=== PATIENT | female | born 1965 | race Caucasian/White ===

== ENCOUNTER 2025-09-17 13:58 | Outpatient (AMB) | payer BC, SELFPAY ==
--- NOTE | 2025-09-17 14:01 | A.OFFPC_ITS ---
Vital Signs 09/17/25 14:03 Height 5 ft 3 in Weight 129 lb 2 oz BMI 22.9 BP 132/84 Blood Pressure Location Lt brachial Position Sitting Respiration 16 Pulse 86 Pulse Source Pulse Oximeter Temp 97.1 F Temp Source Temporal Artery Scan Pulse Oximetry (%) 93 Oxygen Delivery Method Room Air Intake Visit Reasons: Annual-Rey pt Didactic Instructor Required: No Accompanied by: Self / Same As Patient Allergies No Known Allergies Allergy (Verified 09/17/25 14:04) Medication List - Last Reconciled 09/17/25 by Rebecca Le MD azelastine 2 sprays intranasal BID PRN desonide 0.05% appl topical BID PRN dextroamphetamine-amphetamine 15 mg 1 tab PO BID dextroamphetamine-amphetamine 5 mg 1 tab PO DAILY PRN estradiol (Imvexxy Maintenance Pack) 10 mcg vaginal 2XW progesterone micronized 200 mg PO BEDTIME trazodone 50 mg PO BEDTIME PRN tretinoin 0.025% appl topical BEDTIME PRN tretinoin 0.01% topical BEDTIME triamcinolone acetonide 0.1% topical BID PRN Tobacco use date assessed: 09/17/25 Dental Screening Dental Screen Date: 09/17/25 Did you have a dental visit in the last 12 months?: Yes Did you have a dental problem in the last 6 months where you did not have access to dental care?: No Was dental information given to patient?: Patient has dentist HPI HPI Comments History of Present Illness Details The patient is a 60-year-old female [facility] and for an annual wellness visit. Abdominal wall protrusion / Diastasis recti: The patient reports a protrusion in her abdomen, which she notices when lying in certain positions, and believes there may be more than one. She states these occurrences have become more frequent recently, but denies any associated nausea, constipation, or straining. The issue was first noted after an abdominal surgery, following which she was told she had diastasis recti. Uterine Leiomyoma: The patient was diagnosed with uterine fibroids in 2014 and reports they have not shrunk over the past decade. She experiences dyspareunia. Past treatments include ineffective Lupron injections and a uterine artery embolization around [id number]. Her wedding decorator, Dr. Erwin, has been discouraging regarding a hysterectomy and will not prescribe systemic hormones due to concern for fibroid growth. The patient has previously had a surgical consult with Dr. Diamond. Menopausal Syndrome: The patient is receiving treatment for menopausal symptoms from a nurse practitioner at [facility] to [facility]. She uses a compounded cream containing progesterone and estradiol, as her wedding decorator was unwilling to prescribe systemic hormones. She also uses vaginal estrogen prescribed by her PUBLIC OPINION SURVEY TAKER. HTN- bp controlled off meds Health Maintenance: The patient reports her last mammogram was in January of this year. Her last DEXA scan was in 2023. Her vaccinations are up to date for shingles and the new COVID vaccine. She has had a pneumonia shot. OBGYN- Dr. Erwin- will obtain pap smear reports. Social History: - Patient is Family History: - Positive for Alzheimer's disease. Review of Systems - Gastrointestinal: Reports abdominal pr otrusion when lying in certain positions. Denies nausea, constipation, or straining. - Genitourinary: Reports dyspareunia. - Neurological/Psychiatric: Reports inso mnia. Denies depression (PHQ-9 score 0). - Skin: Reports occasional dry skin betw een the ears. Physical Exam - HEENT: External ears normal. Bilateral tympanic membranes are clear. Oropharynx is clear. - Cardiovascular: Regular rate and rhyth m. A soft heart murmur is audible. - Pulmonary: Lungs are clear to ausculta tion bilaterally. - Abdomen: Bowel sounds are present and normal. Abdomen is soft, non-tender to palpation throughout. - Lymphatic: No lymphadenopathy noted on examination. - Extremities: No lower extremity edema. Assessment and Plan 1. Abdominal wall protrusion/Diastasis r ecti - The patient's report of an increasingl y frequent abdominal protrusion warrants further investigation. - An initial soft tissue ultrasound of t he abdomen will be ordered. - Pending these results, an MRI of the a bdomen and pelvis may be pursued for more detailed anatomical assessment. 2. Uterine leiomyomas and Dyspareunia - The patient's large, symptomatic fibro ids, refractory to past treatments and causing dyspareunia, will be further evaluated. - The planned abdominal and pelvic MRI w ill also assess the fibroids' size and location. - Results will guide discussion on furth er management, including a potential referral to Dr. Diamond for surgical consultation regarding a hysterectomy. - The patient will require anxiolysis fo r the MRI(diazepam 5mg- 7.5mg) 3. Health Maintenance - The patient is presenting for an [facility] wellness visit. - Fasting labs, including a lipid panel, CBC, CMP, TSH have been ordered. - She is up to date on her mammogram and DEXA scan. - Her query on APOE testing was addresse d by explaining it is not a routine screening test. 4. Menopausal Syndrome - Patient [facility] using compounded hormone therapy, along with vaginal estrogen from her PUBLIC OPINION SURVEY TAKER. - She will continue her current regimen. 5. Insomnia - Patient is using trazodone effectively for sleep. - She will continue as needed. 6. Dermatologic conditions - Patient has not seen her consumer electronics merchandiser in over a year. - She was advised to contact her dermato logist for refills of her topical medications (Tretinoin, Triamcinolone, Desonide). - Patient will follow up in 3 months Discussion Notes I discussed the plan to evaluate her abdominal protrusion, starting with a soft tissue ultrasound and followed by an MRI of the abdomen and pelvis if necessary. We reviewed that this MRI would also assess her long-standing, symptomatic uterine fibroids. We agreed that based on the imaging results, we will decide on the next steps, which could include a referral for a surgical consultation for a possible hysterectomy. I addressed her questions about genetic testing for Alzheimer's, clarifying that it is not a routine screening test . Patient Instructions - Please complete the fasting bloodwork that was ordered. You will need to fast for 10 hours beforehand (water is okay). You can go to any of the walk-in lab locations on the paper I gave you. - Our office has ordered a soft tissue u ltrasound of your belly. The scheduling department will call you to set up this appointment. [facility] Medical History (Updated 09/17/25 @ 14:35 by Rebecca Le MD) Vitamin D deficiency Routine adult health maintenance Spondylolisthesis Fibroid Primary hypertension Anemia ADHD Surgical History (Updated 09/17/25 @ 14:53 by Rebecca Le MD) Status post embolization of uterine artery History of hernia surgery H/O breast surgery S/P panniculectomy History of colonoscopy (~05/31/16) Family History (Updated 09/17/25 @ 13:08 by Rebecca Le MD) Other Alcoholism COPD (chronic obstructive pulmonary disease) Heart disease Lupus Social History Housing: House Patient Tobacco Use Status: Former Tobacco user Years Smoked: 30 years e-Cigarette/Vaping Use: Former Use service: No Current occupational status: employed 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 1. Little interest or pleasure in doing things: not at all 2. Feeling down, depressed, or hopeless: not at all 3. Trouble falling or staying asleep, or sleeping too much: not at all 4. Feeling tired or having little energy: not at all 5. Poor appetite or overeating: not at all 6. Feeling bad about yourself - or that you are a failure or have let yourself or your family down: not at all 7. Trouble concentrating on things, such as reading the newspaper or watching television: not at all 8. Moving or speaking so slowly that other people could have noticed. Or the opposite - being so fidgety or restless that you have been moving around a lot m ore than usual: not at all 9. Thoughts that you would be better off or of hurting yourself in some way: not at all Total score: 0 Depression Screening Interpretation: Negative Depression Screening Done: Yes 96605 - PHQ-9 Billing: Yes Source: Developed by Drs. Asaf Fox, Jen Fraga, Aj Rosales and colleagues, with an educational ryan from [employer]. Thrive Questionnaire Date Thrive assessed: 09/17/25 I am a: Patient What is your living situation today?: I have a steady place to live Within the past 12 months, did the food you bought not last and you didn't have the money to get more?: Never true Within the past 12 months, did you worry whether your food would run out before you got money to buy more?: Never true Do you have trouble paying for medicines?: No Do you have trouble getting transportation to medical appointments?: No Do you have trouble paying your heating and electricity bill?: No Do you have trouble taking care of your child, family member or friend?: No Do you have trouble with day-to-day activities such as bathing, preparing meals, shopping, managing finances, etc.?: No Are you currently unemployed and looking for a job?: No Are you interested in more education?: No Please select the resources that you would like help with: None Currently or been in a relationship where the following occur: No concerns reported THRIVE Score: 0 AUDIT C Alcohol Use Questionnaire (AUDIT-C) 1. How often do you have a drink containing alcohol?: 2-4 times a month 2. How many drinks containing alcohol do you have on a typical day when you are drinking?: 1 or 2 3. How often do you have six or more drinks on one occasion?: Never Total Score: 2 ANNA-7 AMB Questionnaire ANNA-7 Date ANNA - 7 assessed: 09/17/25 Feeling nervous, anxious, or on edge: 0 = Not at all Not being able to stop or control worryin = Not at all Worrying too much about different things: 0 = Not at all Trouble relaxin = Not at all Being so restless that it is hard to sit still: 0 = Not at all Becoming easily annoyed or irritable: 0 = Not at all Feeling afraid as if something awful might happen: 0 = Not at all Total ANNA-7 score (0-4 normal; 5-9 mild; 10-14 moderate; 15-21 severe): 0 Source: Developed by Drs. Asaf Fox, Jen Fraga, Aj Rosales and colleagues, with an educational ryan from [employer]. Physical exam (Primary Care) Vital Signs: Last Vital Signs Temp 97.1 F 09/17/25 14:03 Pulse 86 09/17/25 14:03 Resp 16 09/17/25 14:03 BP 132/84 09/17/25 14:03 Pulse Ox 93 09/17/25 14:03 Oxygen Delivery Method Room Air 09/17/25 14:03 BMI result Body Mass Index 22.9 Tobacco/Smoking Status: Tobacco use Status Tobacco use date assessed 09/17/25 09/17/25 14:10 Patient Tobacco Use Status Former Tobacco user 09/17/25 14:10 e-Cigarette/Vaping Use Former Use 09/17/25 14:10 PHQ-9: PHQ-9 Score PHQ-9: Total score 0 09/17/25 15:23 Depression Screening Interpretation: Negative Thrive Assessment: Date of Thrive Assessment Date Thrive assessed 09/17/25 09/17/25 14:10 Currently or been in a relationship where the following occur: No concerns reported Coding Level of Care Code Est Pt Prev Care 40-64y(31088) Diagnoses Routine adult health maintenance Z00.00 History of hernia surgery Z98.890; Z87.19 Additional Codes PHQ-9 - 02941 - PHQ-9 Billing: Yes ([id number]) Assessment & Plan Assessment & Plan (1) Routine adult health maintenance: Code(s): Z00.00 - Encounter for general adult medical examination without abnormal findings Category: Medical (2) History of hernia surgery: Code(s): Z98.890 - Other specified postprocedural states; Z87.19 - Personal history of other diseases of the digestive system Category: Surgical Plan Plan - Order a soft tissue ultrasound of the abdomen to evaluate the abdominal protrusion. - Plan for a subsequent MRI of the abdomen and pelvis to further evaluate the abdominal wall and uterine fibroids, pending ultrasound results. - Prescribe Diazepam for use prior to the MRI for anxiolysis. Orders: Orders Complete Blood Count Auto Diff Today D64.9 - Anemia, unspecified, E55.9 - Vitamin D deficiency, unspecified, I10 - Essential (primary) hypertension, Z00.00 - Encounter for general adult medical examination without abnormal findings Comprehensive Met. Panel Today D64.9 - Anemia, unspecified, I10 - Essential (primary) hypertension, Z00.00 - Encounter for general adult medical examination without abnormal findings Ferritin Today D64.9 - Anemia, unspecified, I10 - Essential (primary) hypertension, Z00.00 - Encounter for general adult medical examination without abnormal findings Vitamin B12 Today D64.9 - Anemia, unspecified, I10 - Essential (primary) hypertension, Z00.00 - Encounter for general adult medical examination without abnormal findings Magnesium Today D64.9 - Anemia, unspecified, I10 - Essential (primary) hypertension, Z00.00 - Encounter for general adult medical examination without abnormal findings US abdomen limited Today Z87.19 - Personal history of other diseases of the digestive system, Z98.890 - Other specified postprocedural states TSH reflex Free T4 Today D64.9 - Anemia, unspecified, I10 - Essential (primary) hypertension, Z00.00 - Encounter for general adult medical examination without abnormal findings Lipid Panel Today D64.9 - Anemia, unspecified, I10 - Essential (primary) hypertension, Z00.00 - Encounter for general adult medical examination without abnormal findings IRON PROFILE Today D64.9 - Anemia, unspecified, I10 - Essential (primary) hypertension, Z00.00 - Encounter for general adult medical examination without abnormal findings Vitamin D 25-OH Total Today D64.9 - Anemia, unspecified, E55.9 - Vitamin D deficiency, unspecified, I10 - Essential (primary) hypertension, Z00.00 - Encounter for general adult medical examination without abnormal findings
[2025-09-17 14:03] VITALS: BP 132/84; PULSE 86; RESP 16; TEMP 36.2; O2SAT 93; BMI 22.9
--- OUTSIDE RECORDS SUMMARY | 2025-09-17 20:42 | XMS_ITS | Patient Health Record ---
Author Organization [facility] Address [address] [place] [address] Care Team Providers Care Luggage Repairer Name Role Phone Rebecca Le Primary Care Provider Unavaila ble Allergies No Known Allergies Reason For Referral No Information Medications Medication SIG (Take, Route, Frequency, Duration) Notes Start Date End Date Status metroNIDAZOLE Not-Ta maddie Progesterone 200 MG as directed Orally Not-Taking traZODone HCl Not-Ta maddie Tretinoin 0.05 % 1 application in the evening to face Externally Once a day Not-Taking Adderall 15 MG 1 tablet Orally Twic e a day Active Desonide 0.05 % 1 application Externally Twice a day Not-Taking Dextroamphetamine Sulfate 15 MG 1 tablet in the morning Orally Once a day Not-Taking Fluticasone Furoate-Vilanterol Not-Takin g Problems Problem Type SNOMED Code ICD Code Onset Dates Problem Status W/U Status Risk Notes 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 Problem Plantar fat pad atrophy of right foot (M21.6X1) Active confirmed Plan Of Treatment No Information Insurance Providers Payer Name Payer Address Payer Phone Subscriber Number Group Number Insured Name Patient Relationship to Insured Coverage Start Date Coverage End Date [employer] [facility] [address] [place] [phone] [id number] Susan Mock Self - patient is the insured Medical (General) History Medical History History ICD Code ADHD Anemia Levoscoliosis Spondylolisthesis Uterine Fibroid Surgical History Surgery Date(Month/Year) Release of Dupuytrens contractures Bilateral carpal tunnel release
--- OUTSIDE RECORDS SUMMARY | 2025-09-17 20:42 | XMS_ITS | Data Portability ---
Author Organization [place] - [facility],, ARINA LINDQUIST MD Address [address] [facility] [address] [place] [address] Care Team Providers Care Medical Equipment Repairer Name Role Phone ROBERTA VILLASENOR Primary Care Provider Assessment No assessment recorded. Plan of Treatment Reminders Order Date Submit Date Provider Last Modified By Organization Details Last Modified Time Details Appointments None recorded. Lab cytology report, thin prep, smear or scraping, cervical or vaginal 2024 025 [facility] (Centralized Electronic Ordering - All Locations), Patient Can Go To The Location Of Their Choice, [id number] 11:11:39 hemoglobin , gastrointe stinal, stool 2024 025 [email or web address] 1 In-Office Order, Internal Use Only DO Not Attach Compendium DO Not Attach Compendium, Do Not Delete/merge, [id number] 14:41:18 urinalysis , dipstick 2024 025 [email or web address] 1 In-Office Order, Internal Use Only DO Not Attach Compendium DO Not Attach Compendium, Do Not Delete/merge, [id number] 15:30:19 culture, urine 2024 025 [facility], 2 [facility], [place], [address], 5 18:05:50 wet mount, vaginal 2024 025 [email or web address] 1 In-Office Order, Internal Use Only DO Not Attach Compendium DO Not Attach Compendium, Do Not Delete/merge, [id number] 5 15:32:57 cytology report, thin prep, smear or scraping, cervical or vaginal 2023 024 [facility] (Centralized Electronic Ordering - All Locations), Patient Can Go To The Location Of Their Choice, [id number] 4 18:05:43 hemoglobin , gastrointe stinal, stool 2023 024 [email or web address] 1 In-Office Order, Internal Use Only DO Not Attach Compendium DO Not Attach Compendium, Do Not Delete/merge, [id number] 09:22:37 pap test, thinprep, cervical 2022 023 [email or web address] [facility] (Centralized Electronic Ordering - All Locations), Patient Can Go To The Location Of Their Choice, [id number] 3 08:30:35 wet mount, vaginal 2022 023 [email or web address] 1 In-Office Order, Internal Use Only DO Not Attach Compendium DO Not Attach Compendium, Do Not Delete/merge, [id number] 3 14:27:11 Referral None recorded. Procedures None recorded. Surgeries None recorded. Imaging MAMMO, screening, digital, bilateral - Breast Aspiration and/or Biopsy if needed 2024 025 [email or web address], [address], [address], [place], [address], 5 09:56:42 US, pelvis, transabdom inal + transvagin al - has known fibroid uterus, patient notes pelvic pain, please asses fibroid for possible change in size 2024 025 [facility], [address], [address], [place], [address], 5 17:19:35 MAMMO, screening, digital, bilateral - Breast Aspiration and/or Biopsy if needed 2023 024 [facility] Orders, [address], [address], [place], [address], 5 15:04:45 MAMMO, screening, digital, bilateral - Breast Aspiration and/or Biopsy if needed 2022 023 [facility] Orders, [address], [address], [place], [address], 4 16:58:29 Medication Orders Imvexxy Maintenanc e Pack 10 mcg vaginal insert 2024 025 [facility], [address] [place] [address], [address], 5 14:30:17 triamcinol one acetonide 0.1 % topical ointment 2024 025 [facility], [address] [place] [address], [address], 5 14:30:17 progestero ne micronized 200 mg capsule 2024 025 [facility], [address] [place] [address], [address], 5 14:30:17 triamcinol one acetonide 0.1 % topical ointment 2024 025 [facility]0859, [address] [place] [address], [address], 5 15:30:21 fluconazol e 150 mg tablet 2024 025 [facility]0859, [address] [place] [address], [address], 5 14:24:03 progestero ne micronized 200 mg capsule 2023 024 [facility]acy #0859, [address] [place] [address], [address], 4 09:22:41 Imvexxy Maintenanc e Pack 10 mcg vaginal insert 2023 024 [email or web address] 1 [facility], [address] [place], [address], 4 09:22:47 Imvexxy Maintenanc e Pack 10 mcg vaginal insert 2022 023 [email or web address] 1 [facility], [address] [place], [address], 3 14:23:36 progestero ne micronized 200 mg capsule 2022 023 JOAQUIM [facility], [address] [place] [address], [address], 3 14:20:47 fluconazol e 150 mg tablet 2022 023 [email or web address] [facility], [address] [place] [address], [address], 5 14:24:00 Patient TargetsNo targets recorded. Patient Instructions Encounter Date Encounter Id Patient Instructions Last Modified By Organization Details Last Modified Time 04/29/2023 [id number] atrophic vaginitis: care instructions Not available 04/29/2023 14:28:47 vaginal yeast infection: care instructions Not available 04/29/2023 14:27:10 She is here because in the past week she has developed a new onset, painful intercourse, which she did not have previously. She has been using the Imvexxy with good results, nad the depo lupron shrunk the uterus and it is not causing dyspareunia anymore. Her last depo lupron was 01/24, uterus was 8 weeks size at that time, it had been 12 weeks size previously. On exam: ther are two vertical skin splits, on on each side of the urethra, similar to pressure skin splits, they are 3 mm tall and shallow, superficial, and tender to the touch Wet jeny show mild monilia, she requests rx diflucan. She believes she may have had a pressure injury during intercourse to explain the skin tears. She will keep an eye on it and keep them clean, call if they do not heal. Continue Imvexxy. She also had a number of questions about her fibroid uterus, all answered. Not available 04/29/2023 14:28:35 07/01/2023 [id number] learning about healthy weight Not available 07/01/2023 14:20:35 uterine fibroids : care instructions Not available 07/01/2023 14:21:21 She is here for annual, doing well. She used depo lupron to shrink the fibroid uterus with good results. She is using the Imvexxy, and the vaginal dyspareunia has resolved. Overall she is much improved. She is having some night sweats and sleep disturbances. ___ Note from 2021: She is here for annual exam, no menses since 2018. She has chronic pain from her enlarged uterus, she had a uterine artery embolization in 2015 however this did not appear to resolve the symptomatic fibroids. A recent pelvic MRI was done to assess the enlarged uterus and the largest fibroid is 6 cm at the fundus and has a 5.5 cm bridge to the fundus, so myomectomy is likely to not be a good option. She is unable to be sexually active due to the pain. Prior to the depo lupron her uterus was 10 to 12 weeks size and tender, now it is 8 weeks size and nontender. she does not have the back pain or the urinary frequency or the dyspareunia anymore. the depo lupron accomplished what it was intended to do. We discussed using Remifemin Black Cohash for her night sweats. She is taking 200 mg prometrium q HS to help her to sleep. She appears to be doing well. Renew Imvexxy and Prometrium. Monthly self breast exam was taught, and stressed, and is advised to call if she discovers any new mass in the breast. Not available 07/01/2023 14:21:05 07/02/2024 [id number] learning about healthy weight Not available 07/02/2024 09:22:37 She is here for annual, doing well, using the prometrium to help sleep, and the Imvexxy for the dryness and dyspareunia. Note from 2022: She is here for annual, doing well. She used depo lupron to shrink the fibroid uterus with good results. She is using the Imvexxy, and the vaginal dyspareunia has resolved. Overall she is much improved. She is having some night sweats and sleep disturbances. She appears to be doing well. Monthly self breast exam was taught, and stressed, and is advised to call if she discovers any new mass in the breast. Not available 07/02/2024 09:23:04 04/26/2025 [id number] urinary tract infection in women information Not available 04/26/2025 15:30:19 vaginal yeast infection: care instructions Not available 04/26/2025 15:30:19 She is here for a one week history of vaginal pruritus and burning. She has been scratching herself at night. She has symptomatic monilia, rx diflucan now and in a week. Also she has started to develop lichen sclerosis, rx Aristocort BID as needed. Also she has dysuria, urine dip negative, check culture. Not available 04/26/2025 15:34:02 08/09/2025 [id number] learning about healthy weight Not available 08/09/2025 14:30:12 She is here for annual, doing well on prometrium and imvexxy. Also using Aristocort with good results in her lichen sclerosis. She notes some recent pelvic pressure and dyspareunia, wonders if her fibroids have enlarged, will check pelvic sonogram. Sono a year ago showed 10 week size. Note from 2023: She is here for annual, doing well, using the prometrium to help sleep, and the Imvexxy for the dryness and dyspareunia. Note from 2022: She is here for annual, doing well. She used depo lupron to shrink the fibroid uterus with good results. She is using the Imvexxy, and the vaginal dyspareunia has resolved. Overall she is much improved. She is having some night sweats and sleep disturbances. __ She appears to be doing well. Check sonogram of pelvis to see if fibroids have enlarged to account for new pelvic symptoms. Monthly self breast exam was taught, and stressed, and is advised to call if she discovers any new mass in the breast. Not available 08/09/2025 14:58:21 Reason for Referral None Reported. Results Created Date Observation Date Name Description Value Unit Range Abnormal Flag Note LastModifiedBy Organization Detail LastModifiedTime 04/29/2004/29/2023 wet mount , vagin al Clue Cells negati ve Not Available In-Office Order Internal Use Only DO Not Attach Compendium DO Not Attach Compendium, Do Not Delete/merge, 04/29/2023 14:26:44 04/29/20 23 04/29/2023 wet mount , vagin al Trichomonas negati ve Not Available In-Office Order Internal Use Only DO Not Attach Compendium DO Not Attach Compendium, Do Not Delete/merge, 04/29/2023 14:26:44 04/29/20 23 04/29/2023 wet mount , vagin al Hyphae positi ve Not Available In-Office Order Internal Use Only DO Not Attach Compendium DO Not Attach Compendium, Do Not Delete/merge, 04/29/2023 14:26:44 04/29/20 23 04/29/2023 wet mount , vagin al atrophic epithelium positi ve Not Available In-Office Order Internal Use Only DO Not Attach Compendium DO Not Attach Compendium, Do Not Delete/merge, [id number] 04/29/2023 14:26:44 07/01/20 23 07/01/2023 [facility] CYTOL OGY results Amanda south Name: TIFFANIE MOCK Amanda south : 965 (Age: 58) Lab Acces leslie #: [id number] Colle ction Date: 2022 Acces leslie Date: 2022 Sign Out Date: 023 Tissandrey imani Ti e: 1: THINP REP 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 Satis facto ry for evalu ation . Endoc ervic al/tr ansfo rmati on zone prese nt. Clini didi Histo ry: Date of Last Menst rual Perio d: not avail able Menst rual Histo ry: not avail able Contr acept therese Histo ry: not avail able Ancil jina Testi ng: Case image d by the ThinP rep Imagi ng Syste m with jammie bernard or amanda hoang Perfo rmed at [facility] ate Refer ence [facility] Cytol o[facility], [address] [place] Clini didi Histo ry (othe r): Z01.4 19 Phone #: [phone], On-Ca ll Patho logis t: [id number] Not Available [facility] (Centralized Electronic Ordering - All Locations) Patient Can Go To The Location Of Their Choice, [id number] 07/08/2023 11:39:45 07/02/20 24 07/07/2024 IGP, RFX APTIM A HPV ASCU diagnosis: Commen t NEGAT THERESE FOR INTRA EPITH ELIAL LESIO N OR MALIG KENNY . Not Available [facility] ([facility]) [address] [facility], [place], [address], 07/07/2024 18:05:43 07/02/2007/07/2024 IGP, RFX APTIM A HPV ASCU specimen adequacy: Commen t Satis facto ry for evalu ation . Endoc ervic al and/o r squam ous metap lasti c cells (endo cervi didi compo nent) are prese nt. Not Available [facility] ([facility]) [address] [facility], [place], [address], 07/07/2024 18:05:43 07/02/20 24 07/07/2024 IGP, RFX APTIM A HPV ASCU clinician provided ICD10: Blu casanova Z01.4 19 Not Available [facility] ([facility]) [address] [place], [address], 07/07/2024 18:05:43 07/02/20 24 07/07/2024 IGP, RFX APTIM A HPV ASCU performed by: Blu Matias , Aida casanova (ASCP ) Not Available [facility] ([facility]) [address] [place], [address], 07/07/2024 18:05:43 07/02/20 24 07/07/2024 IGP, RFX APTIM A HPV ASCU . . Not Available [facility] ([facility]) [address] [place], [address], 07/07/2024 18:05:43 07/02/20 24 07/07/2024 IGP, RFX APTIM A HPV ASCU note: Blu casanova The Pap smear is a scree go test ирина peng to aid in the detec tion of hayley ligna nt and malig nant condi tions of the uteri ne cervi x. It is not a diagn ostic proce dure and shoul d not be used as the sole means of detec ting cervi didi cance r. Both false -posi tive and false -nega tive repor ts do occur . Not Available [facility] ([facility]) [address] [place], [address], 07/07/2024 18:05:43 07/02/20 24 07/07/2024 IGP, RFX APTIM A HPV ASCU test methodology: Blu casanova This liqui d based ThinP rep(R ) pap test was scree danish with the use of an image guide casey systimani m. Not Available [facility] ([facility]) [address] [facility] [place], [address], 07/07/2024 18:05:43 07/02/20 24 07/07/2024 IGP, RFX APTIM A HPV ASCU . Commen t The HPV DNA refle x crite pastora were not met with this speci men resul t there fore, no HPV testi ng was perfo rmed. Not Available [facility] ([facility]) [address] [facility], [place], [address], 07/07/2024 18:05:43 07/02/20 24 07/02/2024 hemog lobin , gastr ointe wicho l, stool Occult Blood negati ve Not Available In-Office Order Internal Use Only DO Not Attach Compendium DO Not Attach Compendium, Do Not Delete/merge, [id number] 07/02/2024 08:10:23 04/26/20 25 04/27/2025 URINE CULTU RE, LUCYI NE urine culture, routine Final report Not Available [facility] ([facility]) [address] [facility], [place], [address], 04/27/2025 18:05:50 04/26/20 25 04/27/2025 URINE CULTU REDARA NE result 1 No growth Not Available [facility] ([facility]) [address] [facility], [place], [address], 04/27/2025 18:05:50 04/26/20 25 04/26/2025 wet mount , vagin al Clue Cells negati ve Not Available In-Office Order Internal Use Only DO Not Attach Compendium DO Not Attach Compendium, Do Not Delete/merge, [id number] 04/26/2025 15:28:39 04/26/20 25 04/26/2025 wet mount , vagin al Trichomonas negati ve Not Available In-Office Order Internal Use Only DO Not Attach Compendium DO Not Attach Compendium, Do Not Delete/merge, [id number] 04/26/2025 15:28:39 04/26/20 25 04/26/2025 wet mount , vagin al Hyphae positi ve Not Available In-Office Order Internal Use Only DO Not Attach Compendium DO Not Attach Compendium, Do Not Delete/merge, 04/26/2025 15:28:39 04/26/2004/26/2025 wet mount , vagin al atrophic epithelium positi ve Not Available In-Office Order Internal Use Only DO Not Attach Compendium DO Not Attach Compendium, Do Not Delete/merge, 04/26/2025 15:28:39 04/26/20 25 04/26/2025 urina lysis , dipst ick GLU Negati ve Not Available In-Office Order Internal Use Only DO Not Attach Compendium DO Not Attach Compendium, Do Not Delete/merge, 04/26/2025 15:14:16 04/26/2004/26/2025 urina lysis , dipst ick MANOLO Negati ve Not Available In-Office Order Internal Use Only DO Not Attach Compendium DO Not Attach Compendium, Do Not Delete/merge, 04/26/2025 15:14:16 04/26/2004/26/2025 urina lysis , dipst ick KET Negati ve Not Available In-Office Order Internal Use Only DO Not Attach Compendium DO Not Attach Compendium, Do Not Delete/merge, 04/26/2025 15:14:16 04/26/2004/26/2025 urina lysis , dipst ick SG 1.020 Not Available In-Office Order Internal Use Only DO Not Attach Compendium DO Not Attach Compendium, Do Not Delete/merge, 04/26/2025 15:14:16 04/26/2004/26/2025 urina lysis , dipst ick BLO Hemoly zed : Trace Not Available In-Office Order Internal Use Only DO Not Attach Compendium DO Not Attach Compendium, Do Not Delete/merge, 04/26/2025 15:14:16 04/26/2004/26/2025 urina lysis , dipst ick pH 6.5 Not Available In-Office Order Internal Use Only DO Not Attach Compendium DO Not Attach Compendium, Do Not Delete/merge, 04/26/2025 15:14:16 04/26/20 25 04/26/2025 urina lysis , dipst ick PRO Negati ve Not Available In-Office Order Internal Use Only DO Not Attach Compendium DO Not Attach Compendium, Do Not Delete/merge, [id number] 04/26/2025 15:14:16 04/26/20 25 04/26/2025 urina lysis , dipst ick URO 0.2 E.U. / dl Not Available In-Office Order Internal Use Only DO Not Attach Compendium DO Not Attach Compendium, Do Not Delete/merge, [id number] 04/26/2025 15:14:16 04/26/20 25 04/26/2025 urina lysis , dipst ick NIT negati ve Not Available In-Office Order Internal Use Only DO Not Attach Compendium DO Not Attach Compendium, Do Not Delete/merge, 04/26/2025 15:14:16 04/26/20 25 04/26/2025 urina lysis , dipst ick SARI Negati ve Not Available In-Office Order Internal Use Only DO Not Attach Compendium DO Not Attach Compendium, Do Not Delete/merge, [id number] 04/26/2025 15:14:16 08/09/2008/12/2025 IGP, RFX APTIM A HPV ASCU diagnosis: Commen t NEGAT THERESE FOR INTRA EPITH ELIAL LESIO N OR TAM COX . Not Available [facility] ([facility]) [address] [facility], [place], [address], 08/12/2025 11:11:39 08/09/20 25 08/12/2025 IGP, RFX APTIM A HPV ASCU specimen adequacy: Commen t Satis facto ry for evalu ation . Endoc ervic al and/o r squam ous metap lasti c cells (endo cervi didi compo nent) are prese nt. Not Available [facility] ([facility]) [address] [facility], [place], [address], 08/12/2025 11:11:39 08/09/20 25 08/12/2025 IGP, RFX APTIM A HPV ASCU clinician provided ICD10: Blu casanova Z01.4 19 Not Available [facility] ([facility]) [address] [place], [address], 08/12/2025 11:11:39 08/09/2008/12/2025 IGP, RFX APTIM A HPV ASCU performed by: Blu Matias , Cytol ogist (ASCP ) Not Available [facility] ([facility]) [address] [place], [address], 08/12/2025 11:11:39 08/09/2008/12/2025 IGP, RFX APTIM A HPV ASCU . . Not Available [facility] ([facility]) [address] [place], [address], 08/12/2025 11:11:39 08/09/2008/12/2025 IGP, RFX APTIM A HPV ASCU note: Blu casanova The Pap smear is a scree go test desig danish to aid in the detec tion of hayley ligna nt and malig nant condi tions of the uteri ne cervi x. It is not a diagn ostic proce dure and shoul d not be used as the sole means of detec ting cervi didi cance r. Both false -posi tive and false -nega tive repor ts do occur . Not Available [facility] ([facility]) [address] [facility], [place], [address], 08/12/2025 11:11:39 08/09/2008/12/2025 IGP, RFX APTIM A HPV ASCU test methodology: Blu casanova This liqui d based ThinP rep(R ) pap test was scree danish with the use of an image guide casey [place] Not Available [facility] ([facility]) [address] [place], [address], 08/12/2025 11:11:39 08/09/20 25 08/12/2025 IGP, RFX APTIM A HPV ASCU . Commen t The HPV DNA refle x crite pastora were not met with this speci men resul t there fore, no HPV testi ng was perfo rmed. Not Available [facility] ([facility]) [address] [facility], [place], [address], 08/12/2025 11:11:39 08/09/20 25 08/09/2025 hemog lobin , gastr ointe wicho l, stool Occult Blood negati ve Not Available In-Office Order Internal Use Only DO Not Attach Compendium DO Not Attach Compendium, Do Not Delete/merge, [id number] 08/09/2025 14:41:10 01/06/20 24 01/06/2024 US, pelvi s, trans abdom inal + trans vagin al No observ ation record ed. [email or web address] [address], [address], 01/13/2024 10:24:22 01/24/20 24 01/24/2024 MAMMO , scree go, digit al, bilat eral No observ ation record ed. [facility] [address], [place], [address], 01/27/2024 08:34:25 01/29/20 25 01/27/2025 MAMMO , scree go, digit al, bilat eral No observ ation record ed. [facility] [address] [facility] [address], [place], [address], 01/28/2025 15:27:08 08/20/20 25 08/20/2025 US, pelvi s, trans abdom inal + trans vagin al No observ ation record ed. [email or web address] [address], [address], 09/06/2025 08:32:38 Result Notes None recorded. Problems Name Problem SNOMED Code Status Onset Date Resolution Date Notes Provider Name and Address Organization Details Recorded Time Menopausal syndrome 628067180 Active 2018 Arina Lindquist MD [address], [place], [address], [place] - [facility], 9 14:44:34 Reduced libido 1105704 Active 2018 Arina Lindquist MD [address], [place], [address], [place] [facility], 9 14:44:42 Uterine leiomyoma 82870145 Active 2019 12 weeks size even after UAE Arina Lindquist MD [address], [place], [address], [place] [facility], 0 15:11:16 Backache 135741755 Active 2019 Arina Lindquist MD [address], [place], [address], [place] [facility], 0 14:01:52 Dyspareunia 68508162 Active 2019 Arina Lindquist MD [address], [place], [address], [place] - [facility], 0 14:01:59 Increased frequency of urination 731822738 Active 2019 Arina Lindquist MD [address], [place], [address], [place] - [facility], 0 14:02:07 Atrophic vaginitis 52410187 Active 2021 Arina Lindquist MD [address], [place], [address], [place] - [facility], 2 08:55:01 Intermittent claudication 83188297 Active 2021 MD Rohit Matthews,[address], [place], [address], [place] - [facility], 09:43:22 Problem Notes None recorded. Procedures Surgical History Date Name Laterality Status Provider Name and Address Organization Details Recorded Time 01/28/20 25 Most Recent Mammogram completed Clarisa Arriola in [facility], 04/26/2025 15:13:46 11/21/19 23 medial rectus resection completed Steph Arriola in [facility], 01/07/2023 09:08:55 07/14/20 20 hand tendon release completed Steph Arriola in [facility], 08/16/2020 13:06:31 04/09/20 17 Carpal tunnel surgery completed Clarisa Arriola in [facility], 04/06/2019 13:28:35 04/09/20 16 embolization procedure completed Arina Lindquist MD [address] [facility],[address], [place], [address], [place] - [facility], 05/05/2020 14:27:42 10/10/20 10 Nipple/areola reconstruction completed Clarisa Arriola in [facility], 04/06/2019 13:30:17 11/04/19 10 abdominoplasty completed Arina Lindquist MD [address], [place], [address], [facility] - [facility], 06/01/2022 09:00:35 01/16/20 06 Hernia repair w/mesh completed Clarisa Arriola in [facility], 04/06/2019 13:29:28 Imaging Results None recorded. Procedure Notes None recorded. Medical Equipment None Reported. Allergies No known drug allergies Medications Name Sig Start Date Stop Date Status Note LastModified by Organization Details LastModified Time Prescript ion - Clarifica tion active Lupron Not Available Not Available Not Available Prescript ion - Prior Authoriza tion Request active [facility] L[facility] Not Available Not Available Not Available celecoxib 200 mg capsule TAKE 1 CAPSULE BY MOUTH TWICE DAILY. START 1 DAY PRE-OP 12/07 completed Not Available Not Available Not Available tretinoin 0.1 % topical cream APPLY TO AFFECTED AREA AT BEDTIME active Not Available Not Available No t Available desonide 0.05 % topical cream APPLY TWICE A DAY FOR 5 DAYS THEN DISCONTI NUE 04/26 completed Not Available Not Available Not Available terconazo le 0.4 % vaginal cream INSERT 1 APPLICAT ORFUL VAGINALL Y EVERY DAY FOR 7 DAYS 07/01 completed Not Available Not Available Not Available acetamino phen 325 mg tablet TAKE 2 TABLETS BY MOUTH EVERY 6 HOURS X 14 DAYS NEEDED FOR PAIN 04/26 completed Not Available Not Available Not Available Estring 2 mg (7.5 mcg/24 hour) vaginal ring Insert 1 vaginal ring every 3 months by vaginal route. 04/03 completed Not Available Not Available Not Available tretinoin 0.01 % topical gel APPLY PEA SIZED AMOUNT TOPICALL Y TO FACE EVERY NIGHT AT BEDTIME active Not Available Not Available No t Available trazodone 50 mg tablet TAKE 1 & 1/2 TABLETS BY MOUTH DAILY AT BEDTIME NEEDED FOR INSOMNIA active Not Available Not Available No t Available azithromy lilia 250 mg tablet TAKE 2 TABLETS BY MOUTH TODAY, THEN TAKE 1 TABLET DAILY FOR 4 DAYS DIRECTED 07/02 completed Not Available Not Available Not Available alprazola m 1 mg tablet TAKE 1 TABLET BY MOUTH 1 HOUR PRIOR TO SURGERY 12/07 completed Not Available Not Available Not Available fluconazo le 150 mg tablet TAKE 1 TABLET EVERY WEEK BY ORAL ROUTE FOR 14 DAYS. 08/09 completed Not Available Not Available Not Available valacyclo vir 1 gram tablet 05/05 completed Not Available Not Available Not Available cephalexi n 250 mg capsule TAKE 1 CAPSULE BY MOUTH EVERY 6 HOURS 06/01 completed Not Available Not Available Not Available hydrocodo ne 5 mg-acetam inophen 325 mg tablet TAKE 1 TABLET BY MOUTH EVERY 6 HOURS NEEDED FOR PAIN 12/07 completed Not Available Not Available Not Available tretinoin 0.025 % topical cream APPLY TOPICALL Y DAILY AT BEDTIME NEEDED FOR RHYTIDES active Not Available Not Available No t Available fluocinol one 0.01 % topical cream 12/10 completed Not Available Not Available Not Available meloxicam 15 mg tablet 06/01 completed Not Available Not Available Not Available hydroquin one 4 % topical cream APPLY A THIN FILM TO AFFECTED AREA DAILY 07/02 completed Not Available Not Available Not Available metronida zole 0.75 % (37.5 mg/5 gram) vaginal gel INSERT 1 APPLICAT ORFUL VAGINALL Y EVERY DAY FOR 5 DAYS 04/03 completed Not Available Not Available Not Available dextroamp hetamine- amphetami ne 10 mg tablet TAKE 1 TABLET BY MOUTH TWICE DAILY FOR ADHD active Not Available Not Available No t Available clobetaso l 0.05 % topical cream APPLY TOPICALL Y EVERY MORNING AND EVERY EVENING TO RASH RIGHT UPPER ARM FOR 2 WEEKS 08/06 completed Not Available Not Available Not Available amlodipin e 2.5 mg tablet TAKE 1 TABLET BY MOUTH EVERY DAY active Not Available Not Available No t Available doxycycli ne monohydra te 100 mg tablet TAKE 1 TABLET BY MOUTH TWICE DAILY FOR 7 DAYS 12/07 completed Not Available Not Available Not Available amoxicill in 500 mg tablet TAKE 1 TABLET BY MOUTH THREE TIMES DAILY 05/30 completed Not Available Not Available Not Available lidocaine -prilocai ne 2.5 %-2.5 % topical cream 06/13 completed Not Available Not Available Not Available dextroamp hetamine- amphetami ne 30 mg tablet TAKE 1/2 TABLET BY MOUTH TWICE DAILY active Not Available Not Available No t Available oxycodone -acetamin ophen 5 mg-325 mg tablet TAKE 1 TABLET BY MOUTH EVERY 8 HOURS NEEDED FOR PAIN 04/03 completed Not Available Not Available Not Available desonide 0.05 % topical ointment 08/16 completed Not Available Not Available Not Available benzonata te 100 mg capsule TAKE 1 CAPSULE BY MOUTH THREE TIMES A DAY NEEDED FOR COUGH 07/02 completed Not Available Not Available Not Available hydrocort isone 1 % topical cream MIX W/ ECONAZOL E & CICAPLAS T EQUALLY & APPLY MIXTURE TO CORNERS OF MOUTH 3 TIMES A DAY FOR 7 DAYS . 07/02 completed Not Available Not Available Not Available econazole nitrate 1 % topical cream PATIENT TO MIX WITH EQUAL AMOUNT OF HYDROCOR TISONE,C ICAPLAST B5 AND APPLY 3 TIMES A DAY FOR 7 DAYS . 07/02 completed Not Available Not Available Not Available erythromy lilia 5 mg/gram (0.5 %) eye ointment APPLY A THIN FILM TO EYELID WOUNDS THREE TIMES DAILY 08/06 completed Not Available Not Available Not Available tacrolimu s 0.1 % topical ointment APPLY TO SKIN TWICE A DAY FOR SIX WEEKS active Not Available Not Available No t Available triamcino lone acetonide 0.1 % topical ointment APPLY TWICE A DAY NEEDED FOR 30 DAYS active Not Available Not Available No t Available lidocaine 5 % topical patch 05/05 completed Not Available Not Available Not Available progester one micronize d 200 mg capsule TAKE 1 CAPSULE BY MOUTH AT BEDTIME active Not Available Not Available No t Available nystatin- triamcino lone 100,000 unit/g-0. 1 % topical cream APPLY TOPICALL Y TO AFFECTED SKIN 3 TIMES A DAY FOR 14 DAYS 07/01 completed Not Available Not Available Not Available dextroamp hetamine- amphetami ne 15 mg tablet TAKE 1 TABLET BY MOUTH TWICE DAILY active Not Available Not Available No t Available Lupron Depot 3.75 mg intramusc ular syringe kit Inject 1 kit every 4 weeks by intramus cular route. 04/29 completed give an injectio n every 28 days Not Available Not Available Not Available monteluka st 10 mg tablet TAKE 1 TABLET BY MOUTH EVERY DAY 04/26 completed Not Available Not Available Not Available clindamyc in 2 % vaginal cream INSERT 1 APPLICAT ORFUL VAGINALL Y EVERY DAY AT BEDTIME FOR 7 DAYS active Not Available Not Available No t Available codeine 10 mg-guaife nesin 100 mg/5 mL oral liquid TAKE 5 ML BY MOUTH EVERY 6 HOURS NEEDED FOR COUGH. MAY CAUSE DROWSINE SS. 07/02 completed Not Available Not Available Not Available mupirocin 2 % topical ointment APPLY TOPICALL Y TO THE AFFECTED AREA TWICE DAILY active Not Available Not Available No t Available nystatin 100,000 unit/gram topical powder APPLY TO AFFECTED AREA 3 TIMES A DAY 07/02 completed Not Available Not Available Not Available azelastin e 137 mcg (0.1 %) nasal spray USE 2 SPRAYS INTO EACH NOSTRIL TWICE A DAY active Not Available Not Available No t Available diazepam 10 mg tablet TAKE 1/2 TAB 2 HRS BEFORE PROCEDUR E, THEN 1/2 TAB IF STILL ANXIOUS NEEDED. DO NOT DRIVE ON MED 07/01 completed Not Available Not Available Not Available ibuprofen 600 mg tablet TAKE 1 TABLET BY MOUTH EVERY 6 HOURS X 14 DAYS :ALTERNA TE EVERY 6 HRS WITH TYLENOL 04/26 completed Not Available Not Available Not Available dextroamp hetamine- amphetami ne ER 30 mg 24hr capsule,e xtend release TAKE 1 CAPSULE BY MOUTH EVERY DAY IN THE MORNING active Not Available Not Available No t Available ketoconaz ole 2 % topical cream 05/05 completed Not Available Not Available Not Available fluticaso ne propionat e 50 mcg/actua tion nasal spray,gustavo pension SHAKE LIQUID AND USE 1 SPRAY IN EACH NOSTRIL TWICE DAILY FOR 14 DAYS active Not Available Not Available No t Available dextroamp hetamine- amphetami ne 5 mg tablet TAKE 1 TABLET BY MOUTH EVERY AFTERNOO N active Not Available Not Available No t Available oxycodone 5 mg tablet TAKE 1 TO 2 TABLETS EVERY 4 HOURS NEEDED FOR PAIN 06/01 completed Not Available Not Available Not Available cyclobenz aprine 5 mg tablet 05/05 completed Not Available Not Available Not Available melatonin 04/03 completed Not Available Not Available Not Available Fish Oil 06/01 completed Not Available Not Available Not Available Triple Paste AF 2 % topical ointment PARK AA WITH RASH BID. 08/16 completed Not Available Not Available Not Available estradiol 10 mcg vaginal tablet INSERT 1 RING VAGINALL Y EVERY 3 MONTHS active Not Available Not Available No t Available Multi For Her active Not Available Not Available Not Available Vytone 1.9 %-1 % topical cream packet Apply TO affected AREA twice daily FOR 2-4 WEEKS 07/01 completed Not Available Not Available Not Available Readi-Cat 2 2 % (w/v) oral suspensio n DRINK FIRST BOTTLE AT LEAST 6 HOURS PRIOR TO TEST AND SECOND BOTTLE 90 MINS PRIOR TO TEST active Not Available Not Available No t Available Shingrix (PF) 50 mcg/0.5 mL intramusc ular suspensio n, kit active Not Available Not Available Not Available Fluarix Quad [id number] (PF) 60 mcg (15 mcg x 4)/0.5 mL IM syringe inject 0.5 millilit er intramus cularly active Not Available Not Available No t Available Imvexxy Maintenan ce Pack [address] INSERT VAGINALL Y TWICE WEEKLY active Not Available Not Available No t Available Flucelvax Quad (PF) 60 mcg (15 mcg x 4)/0.5 mL IM syringe inject 0.5 millilit ers intramus cularly active Not Available Not Available No t Available Flucelvax Quad (PF) 60 mcg (15 mcg x 4)/0.5 mL IM syringe ADM 0.5ML IM UTD active Not Available Not Available No t Available Vitals Date Recorded Body height Body mass index (BMI) Body weight Heart rate Systolic And Diastolic Provider Name and Address Organization Details Last Updated DateTime 04/26/2025 158.75 cm 22.3 kg/m2 12345.45 g 96 /min 118/83 mm[Hg] Clarisa Arriola in [facility], 04/26/2025 15:10:57 Date Recorded Body height Body mass index (BMI) Body weight Systolic And Diastolic Provider Name and Address Organization Details Last Updated DateTime 04/29/2023 158.75 cm 22 kg/m2 40198.27 g 138/78 mm[Hg] Steph Arriola in [facility], 04/29/2023 14:03:57 Date Recorded Body height Body mass index (BMI) Body weight Heart rate Systolic And Diastolic Provider Name and Address Organization Details Last Updated DateTime 07/01/2023 158.75 cm 22 kg/m2 30569.27 g 90 /min 122/83 mm[Hg] Steph Arriola in [facility], 07/01/2023 13:58:57 Date Recorded Body height Heart rate Body temperature Body mass index (BMI) Body weight Systolic And Diastolic Provider Name and Address Organization Details Last Updated DateTime 4 158.75 cm 82 /min 97.2 [degF] 21.9 kg/m2 25818.4 7 g 129/85 mm[Hg] Clarisa Arriola in [facility], 08:05:47 Date Recorded Body height Body mass index (BMI) Body weight Heart rate Systolic And Diastolic Provider Name and Address Organization Details Last Updated DateTime 08/09/2025 158.75 cm 22.4 kg/m2 26301.17 g 97 /min 125/92 mm[Hg] Clarisa Ch MA - [facility], 08/09/2025 14:23:11 Social History Question Answer Notes LastModified by Organizat ion Details LastModified Time Tobacco Smoking Status Former Smoker quit 1995 KVNG Beltran in [facility], 04/06/2019 13:24:15 Do You Have An Advance Directive? Yes Information not available 04/06/2019 How Many Years Have You Consumed Alcohol? 30 Information not available 05/30/2021 What Is Your Level Of Caffeine Consumption? Occasional Information not available 04/06/2019 How Much Tobacco Do You Chew? None Information not available 04/06/2019 In The 14 Days Before Symptom Onset, Have You Had Close Contact With A Laboratory-confir med COVID-19 While That Case Was Ill? No Information not available 05/05/2020 In The 14 Days Before Symptom Onset, Have You Had Close Contact With A Person Who Is Under Investigation For COVID-19 While That Person Was Ill? No Information not available 05/05/2020 Have You Been To An Area Known To Be High Risk For COVID-19? No Information not available 05/05/2020 What Type Of Diet Are You Following? REGULAR Information not available 04/06/2019 Which Illicit Or Recreational Drugs Have You Used? No Information not available 04/06/2019 Do You Reside In Or Have You Traveled To An Area Where Ebola Virus Transmission Is Active? No Information not available 04/06/2019 Education 4 Year College Informatio n not available 04/06/2019 What Is The Highest Grade Or Level Of School You Have Completed Or The Highest Degree You Have Received? [id number] Information not available 05/30/2021 Who Is Your Employer? [employer] Information not available 01/16/2022 How Many Days In The Past Year Have You Had A Heavy Drinking Consumption (4+ Female, 5+ Male)? 3 Information no t available 05/05/2020 Are There Any Guns Present In Your Home? No Information not available 04/06/2019 High Number Of Sexual Partners No Information not available 04/06/2019 To Which Gender Do You Self-identify? Female Information not available 04/06/2019 Marital Status Informatio n not available 04/06/2019 What Was The Date Of Your Most Recent Tobacco Screening? 08/09/2025 Information not available 08/09/2025 What Is Your Relationship Status? Information not available 05/30/2021 Seat Belts Used Routinely Yes Information not available 04/06/2019 Are You Sexually Active? Yes Information not available 04/06/2019 Smoke Alarm In Home Yes Information not available 04/06/2019 At What Age Did You Start Smoking Tobacco? 15 Information not available 05/30/2021 How Much Tobacco Do You Smoke? No Information not available 05/05/2020 General Stress Level Low mgagne6 Information not available 08/16/2020 Do You Use Sunscreen Routinely? Yes Information not available 04/06/2019 How Many Years Have You Smoked Tobacco? 15 Information not available 04/06/2019 Have You Recently (within The Last 12 Weeks, Or During A Current ) Traveled To Or Lived In A Zika-affected Area? No Information not available 04/06/2019 How Many Days In The Past Year Have You Consumed 4 Or More Drinks? 0 Information no t available 05/30/2021 Sex: Female Functional Status Question Answer Note LastModified by Organizat ion Details LastModified Time Do you use any illicit or recreational drugs? No Information not available 05/30/2021 Do you or have you ever used any other forms of tobacco or nicotine? Yes Information not available 05/30/2021 What is your level of alcohol consumption? Occasional Information not available 05/05/2020 Do you or have you ever used smokeless tobacco? Never used smokeless tobacco Information not available 05/05/2020 Are you currently employed? Yes Information not available 05/30/2021 What is your occupation? [employer] Information not available 05/30/2021 Do you or have you ever used e-cigarettes or vape? Never used electronic cigarettes Information not available 05/05/2020 What is your exercise level? Moderate Information not available 04/06/2019 Mental Status Question Answer Note LastModified by Organization D etails LastModified Time Do you feel stressed (tense, restless, nervous, or anxious, or unable to sleep at night)? [id number] Information not available 05/30/2021 Family History Relationship Description Onset Age of this Age Resolved Age Notes LastModified by Organization Details LastModified Time Mother Problem 59 lots of autoim mune renoid s , ra, and lupus. .. of copd and heart murmur . [email or web address] Not available 04/06/2019 13:25:24 Maternal Aunt Malignant neoplasm of breast [email or web address] Not available 2018 13:21:58 Paternal Grandmother Malignant neoplasm of uterus great tmeczywor Not available 2018 13:22:27 Sister Problem fibrio ds , and thyroi d issued . [email or web address] Not available 04/06/2019 13:23:29 Medical History Condition Response Anesthesia complications N High Blood Pressure N Candidate for MyRisk panel N Autoimmune Condition N Thyroid Problems N Kidney or Bladder Problems N Depression N GI Problems N Lung Disease N Defects or Inherited Disease N Anemia N History of Ovarian Cancer N History of Breast Cancer N DENISE exposure N BRCA testing in past N Osteopenia Y Psychiatric Illness N Diabetes N Anxiety Disorder N Arthritis Y Headaches or Migraines N Infertility N Asthma N History of Cancer N Endometriosis N Hepatitis N Heart Disease N Hypertension N Osteoporosis N Gynecological History Statement/Question Response If Post Menopausal, Age at Menopause 55 Date of LMP 07/15/2019 Age at Menarche 11 Current Control Method Partner Vas ectomy Most Recent Mammogram 01/27/2025 Age at First Child 25 Obstetrics History GPAL:G 5 P 3 0 1 3 Type Value Full Term 3 Spontaneous 1 Living 3 Total 5 Immunizations Vaccine Type Date Status Note Provider Harpreet diallo and Address Organization Details Recorded Time varicella 9 completed Clarisa Meczywor null, [place] - [facility], 04/06/2019 13:20:02 Influenza, split virus, quadrivalent, preservative 9 completed Clarisa Meczywor null, [place] - [facility], 05/05/2020 14:26:36 COVID-19, mRNA, LNP-S, PF, 30 mcg/0.3 mL dose 1 completed Clarisa Meczywor null, [place] - [facility], 05/30/2021 10:25:52 Influenza, split virus, quadrivalent, preservative 1 completed Clarisa Meczywor null, [place] - [facility], 12/07/2021 11:35:53 COVID-19, mRNA, LNP-S, PF, 30 mcg/0.3 mL dose 2 completed Clarisa Meczywor null, [place] - [facility], 05/28/2022 11:00:26 Influenza, MDCK, quadrivalent, PF 0 completed Clarisa Meczywor null, [place] - [facility], 09/05/2022 09:06:18 Influenza, MDCK, quadrivalent, PF 7 completed Clarisa Meczywor null, [place] - [facility], 09/05/2022 09:06:18 zoster recombinant 9 completed Clarisa Meczywor null, [place] - [facility], 09/05/2022 09:06:18 Influenza, split virus, trivalent, PF 5 completed Clarisa Meczywor null, [place] - [facility], 09/05/2022 09:06:18 Influenza, split virus, quadrivalent, PF 8 completed Clarisa Meczywor null, [place] - [facility], 09/05/2022 09:06:18 Influenza, split virus, quadrivalent, PF 1 completed Clarisa Meczywor null, [place] - [facility], 09/05/2022 09:06:18 COVID-19, mRNA, LNP-S, PF, 30 mcg/0.3 mL dose 1 completed Clarisa Meczywor null, [place] - [facility], 09/05/2022 09:06:18 COVID-19, mRNA, LNP-S, PF, 30 mcg/0.3 mL dose 1 completed Clarisa Meczywor null, [place] - [facility], 09/05/2022 09:06:18 Influenza, split virus, trivalent, PF 6 completed Clarisa Meczywor null, [place] - [facility], 09/05/2022 09:06:18 zoster recombinant 8 completed Clarisa Meczywor null, [place] - [facility], 09/05/2022 09:06:18 Influenza, split virus, quadrivalent, PF 2 completed Clarisa Meczywor null, [place] - [facility], 11/08/2022 14:26:16 COVID-19, mRNA, LNP-S, bivalent, PF, 30 mcg/0.3 mL dose 2 completed Clarisa Meczywor null, [place] - [facility], 11/08/2022 14:26:16 COVID-19, mRNA, LNP-S, PF, 50 mcg/0.5 mL 5 completed Not Available [facility] 08/09/2025 14:21:27 Influenza, split virus, quadrivalent, PF 3 completed Not Available [facility] 08/09/2025 14:21:27 Pneumococcal conjugate PCV21, polysaccharide [id number] conjugate, PF 5 completed Not Available [facility] 08/09/2025 14:21:27 Influenza, MDCK, trivalent, PF 4 completed Not Available [facility] 08/09/2025 14:21:27 Past Encounters Encounter ID Performer Location Encounter Start Date Encounter Closed Date Diagnosis/Indication Diagnosis SNOMED-CT Code Diagnosis ICD10 Code Diagnosis IMO Codes Diagnosis Note [id number] MD ARINA Matthews MD [address] [place], [place] [address] [address] 04/06/2019 13:02:56 04/06/2019 16:05:52 Menopausal syndrome 285146054 N95.1 Reduced libido 7547340 R 68.82 [id number] MD ARINA Matthews MD [address] [place], [place] [address] [address] 05/05/2020 14:20:07 05/05/2020 15:26:12 Specialized medical examination 63269060 Z01.419 Screening for malignant neoplasm of rectum 742723510 Z12.12 Screening mammography 24 320470 Z12.31 [id number] MD ARINA Matthews [facility] [place] [address] 05/09/2020 13:22:44 05/09/2020 14:17:57 Uterine leiomyoma 86861168 D25.1 Increased frequency of urination 811104879 R35.0 Dyspareunia 93766784 N94 .12 Backache 539348035 M54.9 [id number] MD ARINA Matthews MD [address] [place], [place] [address] [address] 08/16/2020 12:58:35 08/16/2020 13:22:27 Atypical squamous cells of undetermined significance on cervical Papanicolaou smear 975604722 R87.610 [id number] MD ARINA Matthews MD [address] [place], [place] [address] [address] 09/27/2020 08:45:17 09/27/2020 10:14:43 Vulvitis 36407909 N76.2 B96.89 [id number] MD ARINA Matthews MD [address] [place], [place] [address] [address] 05/30/2021 10:19:51 05/30/2021 11:22:08 Specialized medical examination 40052524 Z01.419 Screening for malignant neoplasm of rectum 145247486 Z12.12 Screening mammography 24 921176 Z12.31 Uterine leiomyoma 058559 05 D25.1 [id number] MD ARINA Matthews MD [address] [place] [address],[place] [address] 12/07/2021 11:29:18 12/07/2021 16:03:03 Vulvitis 61424539 N76.2 B96.89 [id number] MD ARINA Matthews MD [address] [place] [address] [place] [address] 01/12/2022 08:19:43 01/12/2022 10:34:21 Vulvitis 49821348 N76.2 B96.89 Candidal vulvovaginitis 88014464 B37.3 Atrophic vaginitis 91398 000 N95.2 Dyspareunia 36257064 N94 .12 Increased frequency of urination 782592528 R35.0 [id number] MD ARINA Matthews MD [address] [place] [address] [place] [address] 01/16/2022 09:13:58 01/16/2022 10:30:24 Atrophic vaginitis 04185026 N95.2 Uterine leiomyoma 951097 05 D25.1 Menopausal syndrome 1237 92376 N95.1 Increased frequency of urination 990137494 R35.0 Dyspareunia 71674248 N94 .12 Intermitte nt claudication 88581660 I73.9 Alopecia 33253839 L65.9 [id number] MD ARINA Matthews MD [address] [place] [address] [place] [address] 04/03/2022 12:58:29 04/03/2022 15:21:18 Abdominal bloating 699236631 R14.0 Abdominal pain 48191069 R10.9 Uterine leiomyoma 096447 05 D25.1 Urinary incontinence 165 247171 R32 [id number] MD ARINA Matthews MD [address] [place] [address] [place] [address] 04/19/2022 09:30:06 04/19/2022 14:55:29 Subserous leiomyoma of uterus 74531798 D25.2 Dyspareunia 20369798 N94 .12 Increased frequency of urination 341789724 R35.0 Pain in pelvis 85079095 R10.2 [id number] MD ARINA Matthews MD [address] [place], [place] [address] [address] 06/01/2022 08:40:22 06/01/2022 09:43:24 Specialized medical examination 01635228 Z01.419 Screening for malignant neoplasm of rectum 426726548 Z12.12 Screening mammography 24 513323 Z12.31 Uterine leiomyoma 029973 05 D25.1 [id number] MD ARINA Matthews MD [address] [place], [place] [address] [address] 06/13/2022 10:21:21 06/13/2022 11:51:09 Candidal vulvovaginitis 85743046 B37.3 Postmenopa usal bleeding 97999079 N95.0 Uterine leiomyoma 578675 05 D25.1 [id number] MD ARINA Matthews MD [address] [place], [place] [address] [address] 08/06/2022 08:16:42 08/06/2022 12:52:07 Uterine leiomyoma 84611894 D25.0 Menstruation finding 373 604501 N92.0 [id number] MD ARINA Matthews MD [address] [place], [place] [address] [address] 09/05/2022 09:02:35 09/05/2022 10:08:28 Uterine leiomyoma 43293327 D25.0 Menstruation finding 373 550771 N92.0 [id number] MD ARINA Matthews MD [address] [place], [place] [address] [address] 10/11/2022 09:42:15 10/11/2022 11:41:20 Uterine leiomyoma 18701565 D25.0 Menstruation finding 373 431687 N92.0 [id number] MD ARINA Matthews MD [address] [place], [place] [address] [address] 10/30/2022 09:44:19 10/30/2022 12:09:20 Candidal vulvovaginitis 79986319 B37.31 Uterine leiomyoma 010425 05 D25.0 [id number] MD ARINA Matthews MD [address] [place], [place] [address] [address] 11/08/2022 14:22:14 11/08/2022 15:32:16 Acute lower urinary tract infection 044199661 R30.0 Vulvitis 83381939 N76.2 B96.89 Uterine leiomyoma 728237 05 D25.0 [id number] MD ARINA Matthews MD [address] [place], [place] [address] [address] 12/10/2022 08:33:55 12/10/2022 10:12:12 Uterine leiomyoma 00126247 D25.0 Menstruation finding 373 639367 N92.0 [id number] MD ARINA Matthews MD [address] [place] [address] [place] [address] 01/07/2023 09:03:19 01/07/2023 13:44:25 Uterine leiomyoma 28317950 D25.0 Menstruation finding 373 [id number] N92.0 Dyspareunia 35331302 N94 .12 Backache [id number] M54.9 Increased frequency of urination [id number] R35.0 [id number] MD ARINA Matthews MD [address] [place] [address] [place] [address] 04/29/2023 13:59:47 04/29/2023 15:42:02 Dyspareunia 34521630 N94.12 Fissure in skin 71218593 R23.4 Candidal vulvovaginitis 60448553 B37.31 Atrophic vaginitis 08168 000 N95.2 [id number] MD ARINA Matthews MD [address] [place] [address] [place] [address] 07/01/2023 13:52:46 07/01/2023 15:01:18 Specialized medical examination [id number] Z01.419 Screening for malignant neoplasm of rectum 384672397 Z12.12 Screening mammography 24 931105 Z12.31 Menopausal syndrome 1237 20730 N95.1 Atrophic vaginitis 73940 000 N95.2 Uterine leiomyoma 476189 05 D25.0 [id number] MD ARINA Matthews MD [address] [place] [address], [address] [place] [address] 5 07/02/2024 08:03:24 07/03/2024 08:41:12 Atrophic vaginitis 22374331 N95.2 Menopausal syndrome 1237 21271 N95.1 Specialize d medical examination 89528213 Z01.419 Screening for malignant neoplasm of rectum 634265543 Z12.12 Screening mammography 24 502293 Z12.31 [id number] MD ARINA Matthews MD [address] [place] [address], [address] [place] [address] 5 04/26/2025 15:01:10 04/26/2025 15:35:45 Acute lower urinary tract infection [id number] R30.0 Candidal vulvovaginitis 37068622 B37.31 Lichen scl erosus of vulva 897294359 N90.4 [id number] [id number] MD ARINA Matthews MD [address] [place] [address] [address] [place] [phone] 5 08/09/2025 14:19:54 08/10/2025 09:56:42 Lichen sclerosus of vulva 220553845 N90.4 Atrophic vaginitis 40957 000 N95.2 Menopausal syndrome 1237 55747 N95.1 Specialize d medical examination 11412713 Z01.419 Screening for malignant neoplasm of rectum 334781378 Z12.12 Screening mammography 24 088787 Z12.31 Pain in pelvis 88496414 R10.20 43777 Health Concerns Section Related Observation LastModified by Organization Detai ls LastModified Time None Recorded Concern Status LastModified by Organization Details LastModified Time None Recorded Advance Directives Directive Y: Payers Insurance Date Sequence Insurance Name Policy Number Policy Moreno Covered Member ID Moreno Member ID Guarantor Name 08/06/2025 1 [facility] [id number] Pop Mock [id number] Tiffanie Mock Notes Date Note Type Note Provider Name and Address Organization Details Recorded Time 04/29/2023 text/html She is here because in the past week she has developed a new onset, painful intercourse, which she did not have previously. She has been using the Imvexxy with good results, nad the depo lupron shrunk the uterus and it is not causing dyspareunia anymore. Her last depo lupron was 01/24, uterus was 8 weeks size at that time, it had been 12 weeks size previously. Arina Lindquist MD [address], [place], [address], [place] - [facility], 04/29/2023 14:29:07 07/01/2023 text/html She is here for annual, doing well. She used depo lupron to shrink the fibroid uterus with good results. She is using the Imvexxy, and the vaginal dyspareunia has resolved. Overall she is much improved. She is having some night sweats and sleep disturbances. __ Note from 2021: She is here for annual exam, no menses since 2018. She has chronic pain from her enlarged uterus, she had a uterine artery embolization in 2016 however this did not appear to resolve the symptomatic fibroids. A recent pelvic MRI was done to assess the enlarged uterus and the largest fibroid is 6 cm at the fundus and has a 5.5 cm bridge to the fundus, so myomectomy is likely to not be a good option.She is unable to be sexually active due to the pain. Arina Lindquist MD [address], [place], [address], [place] - [facility], 07/01/2023 14:24:22 07/02/2024 text/html She is here for annual, doing well, using the prometrium to help sleep, and the Imvexxy for the dryness and dyspareunia. Note from 2022: She is here for annual, doing well. She used depo lupron to shrink the fibroid uterus with good results. She is using the Imvexxy, and the vaginal dyspareunia has resolved. Overall she is much improved.She is having some night sweats and sleep disturbances. Arina Lindquist MD [address], [place], [address], [facility] - Associates in [facility], 07/02/2024 09:23:27 04/26/2025 text/html She is here for a one week history of vaginal pruritus and burning. She has been scratching herself at night. Arina Lindquist MD [address], [place], [address], [employer] - [facility] in [facility], 04/26/2025 15:34:32 08/09/2025 text/html She is here for annual, doing well on prometrium and imvexxy. Note from 2023: She is here for annual, doing well, using the prometrium to help sleep, and the Imvexxy for the dryness and dyspareunia. Note from 2022: She is here for annual, doing well. She used depo lupron to shrink the fibroid uterus with good results. She is using the Imvexxy, and the vaginal dyspareunia has resolved. Overall she is much improved.She is having some night sweats and sleep disturbances. Arina Lindquist MD [address], [place], [address], [employer] - [facility] in [facility], 08/09/2025 14:58:41 OBGyn Episode No OBEpisode recorded.
--- OUTSIDE RECORDS SUMMARY | 2025-09-17 20:42 | XMS_ITS | Clinical Summary ---
Author Organization Formerly [facility] Address [address] [place] [address] Care Team Providers Care Preconstruction Manager Name Role Phone Rebecca Le MD Primary Care Provider +1- [phone] Allergies No known active allergies Medications amLODIPine (NORVASC) 2.5 MG tablet Take 2.5 mg by mouth. 4 Active amphetamine-dext roamphetamine (ADDERALL XR) 15 MG 24 hr capsule Take 15 mg by mouth. Active progesterone (PROMETRIUM) 200 MG capsule Take 200 mg by mouth nightly. 5 Active traZODone (DESYREL) 50 MG tablet TAKE 1 & 1/2 TABLETS BY MOUTH DAILY AT BEDTIME NEEDED FOR INSOMNIA 4 Active Imvexxy Maintenance Pack 10 MCG Insert INSERT 1 VAGINAL INSERT TWICE A WEEK BY VAGINAL ROUTE FOR 84 DAYS. 4 Active Azelastine HCl 137 MCG/SPRAY nasal sprayIndications :Non-seasonal allergic rhinitis due to pollen USE 2 SPRAYS INTO EACH NOSTRIL TWICE A DAY FOR 30 DAYS 30 each 2 5 Active Active Problems Problem Noted Date Diagnosed Date Hypertension 11/13/2024 Levoscoliosis 11/13/2024 Osteopenia 11/13/2024 Spondylolisthesis, grade 1 11/13/2024 Uterine fibroid 11/13/2024 Attention-deficit hyperactivity disorder 023 Anemia 12/04/2022 Intermittent claudication 01/16/2022 Atrophic vaginitis 01/12/2022 Backache 05/09/2020 Increased frequency of urination 05/09/2020 Menopausal syndrome 04/06/2019 Reduced libido 04/06/2019 Onychomycosis 08/07/2017 Pain in toe 08/07/2017 Resolved Problems Problem Noted Date Diagnosed Date Resolved Date Routine medical exam 11/13/2024 025 Immunizations Immunization Administration Dates Next Due Influenza (AFLURIA/FLUZONE) Inactivated/Split Quadrivalent with Preservative IM 08/14/2021,08/18/2019 Influenza Virus Trivalent Sp lit Vaccine (MDV) IM 07/31/2023,09/07/2022,08/14/2021,2020,07/05/2020,08/18/2019,08/03/2018,1 ,06/24/2016,08/10/2015 Influenza, Quadrivalent (FLU ARIX, AFLURIA, FLULAVAL, FLUZONE) Preservative Free IM 09/07/2022,07/21/2021,08/03/2018 Influenza, Quadrivalent (FLU CELVAX) MDCK, Preservative Free IM 07/05/2020,08/10/2017 Influenza, Trivalent (FLUARI X, AFLURIA, FLULAVAL, FLUZONE) Preservative Free IM 06/24/2016,08/10/2015 Tdap 02/22/2016 Varicella 11/12/2018 Zoster Vaccine Recombinant (Shingrix) 11/08/2018 ,08/03/2018 Social History Tobacco Use Types Packs/Day Years Used Date Smoking Tobacco: Never Passive Smoke Exposure: Never Smokeless Tobacco: Never Tobacco Cessation:Counseling Given: Not Answered Alcohol Use Standard Drinks/Week Comments Yes 0 (1 standard drink = 0.6 oz pur e alcohol) Comments Unknown Sex and Gender Information Value Date Recorded Sex Assigned at Not on file Legal Sex Female 2:12 AM EDT Gender Identity Female 01/28/2021 2:33 AM EDT Sexual Orientation Heterosexual (straight) 01/28 2:33 AM EDT Last Filed Vital Signs Vital Sign Reading Time Taken Comments Blood Pressure - - Pulse - - Temperature - - Respiratory Rate - - Oxygen Saturation - - Inhaled Oxygen Concentration - - Weight 53.5 kg (118 lb) 01/18/2025 2:32 PM EDT Height 157.5 cm (5' 2 ) 01/18/2025 2:32 PM EDT Body Mass Index 21.58 01/18/2025 2:32 PM EDT Plan of Treatment Health Maintenance Due Date Last Done Comments Hepatitis C Virus Screening 1965 HIV Screening 1978 Pap Smear (Ages 21-65) 1986 Mammogram 2005 Colonoscopy 2010 Pneumococcal Vaccines 50+ (1 of 1 - PCV) 2015 RSV Vaccine 50 years and older and Patients (1 - Risk 50-74 years 1-dose series) 2015 Influenza Vaccine 06/04/2025 07/31/2023, , 09/07/2022, Additional history exists COVID-19 Vaccine (2024- season) 2025 09/23/2022, 01/22/2022, 07/05/2021, Additional history exists DTaP/Tdap/Td Vaccines (2 - Td or Tdap) 02/21/2026 02/22/2016 Zoster (Shingles) Vaccine Completed 11/08/2018, Hepatitis B Vaccines Aged Out No long er eligible based on patient's age to complete this topic [place] [address] [place] [address] [place] [facility] [address] Care Teams Preconstruction Manager Relationship Specialty Start Date End Date Rebecca Le MD [address] [place] [address] PCP - General Internal Medicine 11/16/24
--- OUTSIDE RECORDS SUMMARY | 2025-09-17 20:42 | XMS_ITS | Encounter Summary ---
Author Organization [facility] Address [address] [place] [address] Care Team Providers Care Fermentation Scientist Name Role Phone Rebecca Le MD Primary Care Provider +1- [phone] Encounter Details Date Type Department Care Team (Late st Contact Info) Description 04/01/2025 Scanned Document [facility] [address] [place] [phone] Tha Mendieta MD [address] [place] [id number] Social History Tobacco Use Types Packs/Day Years Used Date Smoking Tobacco: Never Passive Smoke Exposure: Never Smokeless Tobacco: Never Alcohol Use Standard Drinks/Week Comments Yes 0 (1 standard drink = 0.6 oz pur e alcohol) Comments Unknown Sex and Gender Information Value Date Recorded Sex Assigned at Not on file Legal Sex Female 2:12 AM EDT Gender Identity Female 01/28/2021 2:33 AM EDT Sexual Orientation Heterosexual (straight) 01/28 2:33 AM EDT documented as of this encounter Plan of Treatment Not on file documented as of this encounter Visit Diagnoses Not on filedocumented in this encounter Care Teams Fermentation Scientist Relationship Specialty Start Date End Date Rebecca Le MD [address] [place] [address] PCP - General Internal Medicine 11/16/24 documented as of this encounter
--- OUTSIDE RECORDS SUMMARY | 2025-09-17 20:42 | XMS_ITS | Encounter Summary ---
Author Organization [facility] Address [address] [address] Phone Care Team Providers Care Fine Grade Bulldozer Operator Name Role Phone Rebecca Le MD Primary Care Provider + Reason for Referral * Physical Therapy (Routine) - Closed Specialty Diagnoses / Procedures Referred By Meagan casanova Referred To Contact Physical Therapy Diagnoses Encounter for rehabilitation System, Provider Not In, PhD [id number] [address] Phone: tel: Referral ID Status Reason Start Date Expiration Date Visits Re quested Visits Authorized [id number] Closed 06/25/2018 11/03/2018 99 99 Encounter Details Date Type Department Care Team (Latest Contact Info) Description 06/25/2018 Transcribe Orders [facility] [address] [place] [address] Rebecca Le MD [address] [place] [phone] Encounter for rehabilitation (Primary Dx) Social History Tobacco Use Types Packs/Day Years Used Date Smoking Tobacco: Never Assessed Comments Unknown Sex and Gender Information Value Date Recorded Sex Assigned at Not on file Legal Sex Female 9:30 AM EDT Gender Identity Not on file Sexual Orientation Not on file documented as of this encounter Plan of Treatment Scheduled Referrals Name Type Priority Associated Diagnoses Orde r Schedule Ambulatory referral to [facility] Physical Therapy Outpatient Referral Routine Encounter for rehabilitation Ordered: 06/25/2018 documented as of this encounter Visit Diagnoses Diagnosis Encounter for rehabilitation- Primary documented in this encounter Care Teams Fine Grade Bulldozer Operator Relationship Specialty Start Date End Date Rebecca Le MD PCP - General Internal Medicine 06/25/18 documented as of this encounter Additional Source Comments The information contained in this document represents components of the legal health record. It is not the complete legal health record.[facility]
--- OUTSIDE RECORDS SUMMARY | 2025-09-17 20:43 | XMS_ITS | Clinical Summary ---
Author Organization [facility] Address [address] [facility] [address] [place] [address] Phone Care Team Providers Care Airline Radio Operator Name Role Phone Rebecca Le MD Primary Care Provider +1- [phone] Allergies No known active allergies Medications Fluticasone Furoate 50 MCG/ACT aerosol powder fluticasone prop.50 mcg spray,suspen-sod .chloride 0.9% nasal spray kit Take by nasal route. Active desonide (DESOWEN) 0.05 % cream desonide 0.05 % topical cream APPLY SPARINGLY AND RUB GENTLY INTO THE AFFECTED AREA(S) BY TOPICAL ROUTE 2 TIMES PER DAY Active Dextroamphetami ne Sulfate 15 MG tablet twice a day Active itraconazole (SPORANOX) 100 MG capsule 2 capsules at bed time Active ketoconazole (NIZORAL) 2 % cream ketoconazole 2 % topical cream APPLY TO THE AFFECTED AREA(S) BY TOPICAL ROUTE ONCE DAILY Active Progesterone 100 MG capsule 2 capsules at bed time Active traZODone (DESYREL) 50 MG tablet Take 50 mg by mouth every night Active amphetamine-dex troamphetamine XR (ADDERALL XR) 15 MG 24 hr capsule Take 15 mg by mouth in the morning and 15 mg in the evening. Do not crush or chew. . Active Active Problems Problem Noted Date Diagnosed Date Attention-deficit hyperactivity disorder 023 Anemia 12/04/2022 Onychomycosis 08/07/2017 Pain in toe 08/07/2017 Family History Medical History Relation Comments Stroke Mother Relation Status Comments Mother Social History Tobacco Use Types Packs/Day Years Used Date Smoking Tobacco: Former Cigarettes Smokeless Tobacco: Never Tobacco Cessation:Counseling Given: No Alcohol Use Standard Drinks/Week Comments Yes 0 (1 standard drink = 0.6 oz pur e alcohol) Comments Unknown Sex and Gender Information Value Date Recorded Sex Assigned at Not on file Legal Sex Female 10:06 AM EST Gender Identity Not on file Sexual Orientation Not on file Last Filed Vital Signs Vital Sign Reading Time Taken Comments Blood Pressure 118/80 12/05/2022 3:46 PM EST Pulse 81 12/05/2022 3:46 PM EST Temperature - - Respiratory Rate - - Oxygen Saturation 100% 12/05/2022 3:46 PM EST Inhaled Oxygen Concentration - - Weight 57 kg (125 lb 9.6 oz) 12/05/2022 3:46 PM EST Height - - Body Mass Index - - Plan of Treatment Health Maintenance Due Date Last Done Comments Breast Cancer Screening 1965 Colorectal Cancer Screening: Annual FOBT 2014 Colorectal Cancer Screening: Colonoscopy 2014 Colorectal Cancer Screening: Sigmoidoscopy 2014 Pneumococcal Vaccine: 50+ Ye ars (1 of 1 - PCV) 2015 Influenza Vaccine (#1) 2025 Hepatitis B Vaccine Aged Out No longe r eligible based on patient's age to complete this topic Insurance [facility] Care Teams Airline Radio Operator Relationship Specialty Start Date End Date Rebecca Le MD [address] [place], [place] PCP - General Internal Medicine 11/21/22
--- OUTSIDE RECORDS SUMMARY | 2025-09-17 20:43 | XMS_ITS ---
Author Name [facility] Organization Unknown History of Medication Use Medication Directions Dispensed Refills Start Date End Date Stat us progesterone (PROMETRIUM) 200 MG capsule Take 200 mg by mouth nightly. 11/06/2024 active Azelastine HCl 137 MCG/SPRAY nasal spray USE 2 SPRAYS INTO EACH NOSTRIL TWICE A DAY FOR 30 DAYS 11/01/2024 12/07/2024 active Imvexxy Maintenance Pack 10 MCG Insert INSERT 1 VAGINAL INSERT TWICE A WEEK BY VAGINAL ROUTE FOR 84 DAYS. 10/31/2024 active traZODone (DESYREL) 50 MG tablet TAKE 1 & 1/2 TABLETS BY MOUTH DAILY AT BEDTIME NEEDED FOR INSOMNIA 10/24/2024 active amLODIPine (NORVASC) 2.5 MG tablet Take 2.5 mg by mouth. 08/03/2024 active amphetamine-dextroam phetamine (ADDERALL XR) 15 MG 24 hr capsule Take 15 mg by mouth. active Problems Problem Status Onset Date Problem Type Date of Resolution Source Levoscoliosis active 2024-11-13 ProblemAct [facility] Atrophic vaginitis active 2022-01-12 ProblemAct [facility] Spondylolisthesis, grade 1 active 2024-11-13 ProblemAct [facility] Backache active 2020-05-09 ProblemAct [facility] Pain in toe active 2017-08-07 ProblemAct [facility] Sensorineural hearing loss (SNHL) of both ears active EncounterDiagnosisAct [facility] Uterine fibroid active 2024-11-13 ProblemAct [facility] Reduced libido active 2019-04-[address] Hypertension active 2024-11-13 ProblemAct [facility] Increased frequency of urination active 2020-05-09 ProblemAct [facility] Anemia active 2022-12-04 ProblemAct [facility] Non-seasonal allergic rhinitis due to pollen active EncounterDiagnosisAct [facility] Attention-deficit hyperactivity disorder active 2022-12-05 ProblemAct [facility] Onychomycosis active 2017-08-07 ProblemAct [facility] Menopausal syndrome active 2019-04-06 ProblemAct [facility] Osteopenia active 2024-11-13 ProblemAct [facility] Intermittent claudication active 2022-01-16 ProblemAct [facility] Immunizations Vaccine Date Source Lot Number Status Influenza Virus Trivalent Sp lit Vaccine (MDV) IM 07/31/2023 [facility] [id number] completed Influenza Virus Trivalent Sp lit Vaccine (MDV) IM 09/07/2022 [facility] [id number] completed Influenza, Quadrivalent (FLU ARIX, AFLURIA, FLULAVAL, FLUZONE) Preservative Free IM 09/07/2022 [facility] [id number] completed Influenza (AFLURIA/FLUZONE) Inactivated/Split Quadrivalent with Preservative IM 08/14/2021 [facility] completed Influenza Virus Trivalent Sp lit Vaccine (MDV) IM 08/14/2021 [facility] UNK completed Influenza Virus Trivalent Sp lit Vaccine (MDV) IM 07/21/2021 [facility] [id number] completed Influenza, Quadrivalent (FLU ARIX, AFLURIA, FLULAVAL, FLUZONE) Preservative Free IM 07/21/2021 [facility] [id number] completed Influenza Virus Trivalent Sp lit Vaccine (MDV) IM 07/05/2020 [facility] [id number] completed Influenza, Quadrivalent (FLU CELVAX) MDCK, Preservative Free IM 07/05/2020 [facility] [id number] completed Influenza (AFLURIA/FLUZONE) Inactivated/Split Quadrivalent with Preservative IM 08/18/2019 [facility] completed Influenza Virus Trivalent Sp lit Vaccine (MDV) IM 08/18/2019 [facility] UNK completed Varicella 11/12/2018 [facility] UNK completed Zoster Vaccine Recombinant (Shingrix) 11/08/2018 [facility] UNK completed Influenza Virus Trivalent Sp lit Vaccine (MDV) IM 08/03/2018 [facility] [id number] completed Influenza, Quadrivalent (FLU ARIX, AFLURIA, FLULAVAL, FLUZONE) Preservative Free IM 08/03/2018 [facility] [id number] completed Zoster Vaccine Recombinant (Shingrix) 08/03/2018 [facility] UNK completed Influenza Virus Trivalent Sp lit Vaccine (MDV) IM 08/10/2017 [facility] [id number] completed Influenza, Quadrivalent (FLU CELVAX) MDCK, Preservative Free IM 08/10/2017 [facility] [id number] completed Influenza Virus Trivalent Sp lit Vaccine (MDV) IM 06/24/2016 [facility] [id number] completed Influenza, Trivalent (FLUARI X, AFLURIA, FLULAVAL, FLUZONE) Preservative Free IM 06/24/2016 [facility] [id number] completed Tdap 02/22/2016 [facility] [id number] completed Influenza Virus Trivalent Sp lit Vaccine (MDV) IM 08/10/2015 [facility] [id number] completed Influenza, Trivalent (FLUARI X, AFLURIA, FLULAVAL, FLUZONE) Preservative Free IM 08/10/2015 [facility] [id number] completed Encounters Encounter Type Encounter Reason Primary Diagnosis Location Date Ambulatory Sensorineural hearin g loss, bilateral Sensorineural hearing loss, bilateral [facility] 01/18/2025 Ambulatory Allergies Allergies [facility] 11/16/2024 Care Team Organization Name Specialty Phone Email Start Date End Da te [facility] Primary Care 12/03/2024 02/19/2025 [facility] Primary Care 11/17/2024 [facility] 08/27/2024
--- OUTSIDE RECORDS SUMMARY | 2025-09-17 20:43 | XMS_ITS | Clinical Summary ---
Author Organization [facility] Address [address] [place] [address] [place] [address] Phone Care Team Providers Care Process Development Engineer Name Role Phone Rebecca Le MD Primary Care Provider + Allergies No known active allergies Active Problems No known active problems Social History Tobacco Use Types Packs/Day Years Used Date Smoking Tobacco: Never Assessed Education Answer Date Recorded Are you interested in more education? Not on louise e 03/01/2023 Are you concerned about learning? Not on file 03/01/2023 No 03/01/2023 No 03/01/2023 Digital Access Answer Date Recorded No 03/30/2023 No 03/30/2023 Reliable internet access at home? Not on file 03/30/2023 Device with a working camera? Not on file Comments Unknown Sex and Gender Information Value Date Recorded Sex Assigned at Not on file Legal Sex Female 9:30 AM EDT Gender Identity Not on file Sexual Orientation Not on file Plan of Treatment Health Maintenance Due Date Last Done Comments Adult Td,Tdap Booster 1965 LIPID PANEL 1965 DEPRESSION SCREENING 1977 SMOKING Hx and SMOKELESS TOBACCO SCREENING 1978 HEPATITIS C SCREENING 1983 HIV ONE-TIME SCREENING (18-65 YEARS) 1983 PAP SMEAR 1986 MAMMOGRAM 2005 COLOGUARD 2010 COLONOSCOPY 2010 COLORECTAL CANCER SCREENING 2010 FIT TEST 2010 FOBT 2010 SIGMOIDOSCOPY 2010 VIRTUAL COLONOSCOPY 2010 PNEUMOCOCCAL VACCINES (50+ years) (1 of 1 - PCV) 2015 INFLUENZA VACCINE (#1) 2025 , 07/21/2021, 07/05/2020, Additional history exists COVID-19 VACCINE (2024- season) 2025 07/05/2021, 02/22/2021 RSV VACCINE (1 - 1-dose 75+ series) 2040 ZOSTER VACCINES Completed 11/08/2018, 08/03/2018 HEPATITIS A VACCINES Aged Out No long er eligible based on patient's age to complete this topic HIB VACCINES Aged Out No longer eligi ble based on patient's age to complete this topic IPV VACCINES Aged Out No longer eligi ble based on patient's age to complete this topic MENINGOCOCCAL VACCINES (ACWY) Aged Out No longer eligible based on patient's age to complete this topic MENINGOCOCCAL VACCINES (B) Aged Out N o longer eligible based on patient's age to complete this topic Medical Devices Not on file [facility] PPO EPO [facility] [employer] PPO EPO Care Teams Process Development Engineer Relationship Specialty Start Date End Date Rebecca Le MD PCP - General Internal Medicine 06/25/18 Additional Source Comments The information contained in this document represents components of the legal health record. It is not the complete legal health record.[facility]
== END 2025-09-17 14:49 | disposition home or self-care (01) ==
LOC: HO.HMCHD 13:58
PROVIDERS: Visit Provider Internal Medicine
DX: Z00.00 Encounter for general adult medical examination without abnormal findings (principal); Z98.890 Other specified postprocedural states; Z87.19 Personal history of other diseases of the digestive system

== ENCOUNTER → 2025-09-17 13:58 | Outpatient (BNVA) | payer BC, SELFPAY | PROVIDERS: Visit Provider Internal Medicine | DX: Z00.00 Encounter for general adult medical examination without abnormal findings (principal); M62.08 Separation of muscle (nontraumatic), other site; D25.9 Leiomyoma of uterus, unspecified; I10 Essential (primary) hypertension; Z87.19 Personal history of other diseases of the digestive system; Z13.31 Encounter for screening for depression; Z13.39 Encounter for screening examination for other mental health and behavioral disorders | CPT/HCPCS: 96127 ==